=== PATIENT | female | born 1970 | race Caucasian/White ===

== ENCOUNTER 2020-08-26 08:18 | Outpatient (CLI) | payer OTHER, SELFPAY | END 2020-08-26 23:59 | disposition home or self-care (01) | LOC: MLB 08:18 → EDSTATUS 09-03 07:30 | PROVIDERS: ATTEND Internal Medicine Gastroenterology | DX: Z01.812 Encounter for preprocedural laboratory examination (principal); K62.5 Hemorrhage of anus and rectum; R10.9 Unspecified abdominal pain; Z20.828 Contact with and (suspected) exposure to other viral communicable diseases; Z53.8 Procedure and treatment not carried out for other reasons | CPT/HCPCS: U0003 ==